=== PATIENT | female | born 1975 | race Caucasian/White ===

== ENCOUNTER 2022-10-19 13:00 | Outpatient (CLI) | payer OTHER | END 2022-10-19 13:01 | disposition home or self-care (01) | LOC: CSHMAMMO 13:00 | PROVIDERS: ATTEND Family Medicine | DX: Z12.31 Encounter for screening mammogram for malignant neoplasm of breast (principal) | CPT/HCPCS: 77063; 77067 ==

== ENCOUNTER 2023-08-28 13:16 | Outpatient (CLI) | payer OTHER | END 2023-08-28 13:17 | disposition home or self-care (01) | LOC: CSHMRI 13:16 | PROVIDERS: ATTEND Orthopaedic Surgery | DX: M23.92 Unspecified internal derangement of left knee (principal); S83.522A Sprain of posterior cruciate ligament of left knee, initial encounter; Z98.890 Other specified postprocedural states ==

== ENCOUNTER 2023-12-04 08:55 | Outpatient (CLI) | payer OTHER | END 2023-12-04 08:56 | disposition home or self-care (01) | LOC: CSHMAMMO 08:55 | PROVIDERS: ATTEND Family Medicine | DX: Z12.31 Encounter for screening mammogram for malignant neoplasm of breast (principal); Z80.3 Family history of malignant neoplasm of breast | CPT/HCPCS: 77063; 77067 ==